=== PATIENT | female | born 1985 | race Caucasian/White ===

== ENCOUNTER 2016-04-19 06:35 | Inpatient (IN) | payer OTHER ==
[2016-04-18 09:16] VITALS: Ht 157.5 cm; Wt 98.3 kg
[2016-04-19] VITALS (23 sets, daily range): BP systolic 84–109; RESP 10–20; TEMP 97.2–98.7
[~2016-04-19] VITALS: Ht 157.5 cm; Wt 98.3 kg
[2016-04-19] MEDS ORDERED: METOCLOPRAMIDE 10 MG/2 ML VIAL IV PUSH ONE (06:45)
[2016-04-19] MEDS ORDERED: LACT RINGERS 1,000 ML IV SCH ×2 (06:45→08:50)
[2016-04-19] MEDS ORDERED: LIDOCAINE 1% BUFFERED 1 ML SYR INTRADERM PRN (06:45)
[2016-04-19] MEDS ORDERED: FAMOTIDINE 20 MG INJ IV ONE (06:45)
[2016-04-19] MEDS ORDERED: CEFAZOLIN 2,000 MG in SODIUM CHLORIDE 0.9% 100 ML IV ONE ×4 (07:05)
[2016-04-19] MEDS ORDERED: CEFAZOLIN (LD/OB) 100 ML IV ONE (07:06)
[2016-04-19] MEDS ORDERED: PROMETHAZINE 25 MG/ML VIAL IV PRN (07:15)
[2016-04-19] MEDS ORDERED: SALINE FLUSH 10 ML FLUSH PRN ×2 (07:15→08:50)
[2016-04-19] MEDS ORDERED: NALOXONE 0.4 MG/ML AMP IV PRN (07:15)
[2016-04-19] MEDS ORDERED: DILAUDID 1 MG/ML AMP IV PRN (07:15)
[2016-04-19] MEDS ORDERED: MORPHINE 4 MG/ML SYR IV PRN ×2 (07:15)
[2016-04-19] MEDS ORDERED: MORPHINE 2 MG/ML SYR IV PRN ×2 (07:15)
[2016-04-19] MEDS ORDERED: ONDANSETRON 4 MG VIAL IV PRN ×3 (07:15→08:50)
[2016-04-19] MEDS ORDERED: BUTORPHANOL 1 MG/ML VIAL IV PRN (07:15)
[2016-04-19] MEDS ORDERED: OXYCODONE 5 MG TAB PO PRN (07:15)
[2016-04-19] MEDS ORDERED: MEPERIDINE 25 MG/ML IV PRN (07:15)
[2016-04-19] MEDS ORDERED: DIPHENHYDRAMINE 50 MG/ML VIAL IV PRN (07:15)
[2016-04-19] MEDS: SALINE FLUSH 10 ML FLUSH SCH ×2 (08:00→19:27)
[2016-04-19] MEDS ORDERED: MAG HYDROX 30 ML UDC PO PRN (08:50)
[2016-04-19] MEDS ORDERED: TDaP 0.5 ML VIAL IM.VACC ONE (08:50)
[2016-04-19] MEDS ORDERED: OXYTOCIN 15 UNITS/250 ML NS 250 ML IV SCH (08:50)
[2016-04-19] MEDS ORDERED: MEASLES,MUMPS,RUBELLA VAC SUBQ.VACC ONE (08:50)
[2016-04-19] MEDS: DOCUSATE SOD 100 MG CAP PO SCH (09:00)
[2016-04-19] MEDS ORDERED: OXYTOCIN 10 UNITS/ML VIAL IV ONE (10:44)
[2016-04-19] MEDS ORDERED: ATROPINE 0.4 MG/ML VIAL IV ONE (10:44)
[2016-04-19] MEDS ORDERED: PHENYLEPHRINE 10 MG/ML VIAL IV ONE (10:44)
[2016-04-19] MEDS: KETOROLAC 30 MG/ML VIAL IV SCH ×2 (12:20→18:33)
[2016-04-20] VITALS (8 sets, daily range): BP systolic 80–99; RESP 18–20; TEMP 97.7–98.1
[2016-04-20] MEDS: KETOROLAC 30 MG/ML VIAL IV SCH ×2 (00:04→06:03)
[2016-04-20] MEDS ORDERED: SODIUM CHLORIDE 0.9% FLUSH BAG 500 ML IV SCH (06:00)
[2016-04-20] MEDS: SALINE FLUSH 10 ML FLUSH SCH ×2 (06:04→19:28)
[2016-04-20] MEDS: DOCUSATE SOD 100 MG CAP PO SCH (08:54)
[2016-04-20] MEDS: Ibuprofen 600 MG TAB PO PRN ×2 (12:56→18:19)
[2016-04-20] MEDS: OXYCODONE/APAP 5/325 TAB PO PRN ×3 (15:17→22:33)
[2016-04-21] MEDS: Ibuprofen 600 MG TAB PO PRN ×2 (02:33→08:33)
[2016-04-21 05:49] VITALS: BP_SYST 115; RESP 20; TEMP 97.8
[2016-04-21] MEDS: OXYCODONE/APAP 5/325 TAB PO PRN ×2 (05:56→12:04)
[2016-04-21] MEDS: DOCUSATE SOD 100 MG CAP PO SCH (08:33)
[2016-04-21] MEDS ORDERED: Flu Vaccine Quadrivalent 60 MCG/0.5 ML IM.VACC ONE (09:00)
[2016-04-21 10:03] VITALS: BP_SYST 115; RESP 20; TEMP 97.8
== END 2016-04-21 13:31 | disposition home or self-care (01) | DRG 766 ==
LOC: LD 06:35 → OB 10:33
PROVIDERS: ADMIT Obstetrics & Gynecology; ATTEND Obstetrics & Gynecology
PROC: 10D00Z1 Extraction of Products of Conception, Low, Open Approach (ICD-10-PCS; principal; 2016-04-19)
PROC: 0UT70ZZ Resection of Bilateral Fallopian Tubes, Open Approach (ICD-10-PCS; 2016-04-19)
DX: O34.219 Maternal care for unspecified type scar from previous cesarean delivery (principal); Z3A.39 39 weeks gestation of pregnancy; Z37.0 Single live birth
CPT/HCPCS: 82803; 85025; 86850; 86900; 86901; 88302; 90471